=== PATIENT | female | born 1990 | race Caucasian/White ===

== ENCOUNTER 2017-06-14 05:35 | Day surgery (SDC) | payer BC ==
--- NOTE | 2017-06-13 22:37 | PDGENHP ---
History and Physical - Chief Complaint Bilateral hip pain - History of Present Illness 1. Right~Femoroacetabular impingement (ESTUARDO) Cam type, with~resultant labral tear 2. Clinical suspicion of antetorsion; bilateral / BL Dysplasia HISTORY OF PRESENT ILLNESS: Juanis a 26 y.o.~~active female~who I have had the pleasure to consult on today. I have enjoyed meeting her. She~lives in [place]. 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 ~She~is ; she~has no~children. ~Juanenjoys running, hiking. Layla's right~hip pain~started in 2008 with MRI confirming a labral tear but started worsening 2 years ago, with no recalled trauma or injury, and with no~previous complaints. Juandoes not have~a known history of hip dysplasia. Presentation today is of posterior, lateral right~hip pain. ~The hip does not~ wake her~at night and does~click and catch on her. Sitting can be a real struggle~for her. Juandoes~report suffering from lower back pain episodes. Juanhas~participated in physical therapy (2 yrs)~and has~tried other conservative measures including chiropractic treatments. She~has not~received sufficient symptomatic improvement. Juanhas~utilized medication for pain management, including NSAID~ intermittently. Juandenies issues with the left~hip. ~ Juanunderstands that she~has a hip and pelvis problem which should be researched and wishes to get a better understanding of her~hip status, followed by an establishment of a treatment strategy, hoping she~would be able to get back to her~well being active life. History: Past medical history: ~ None which is relevant Relevant familial history: None which is relevant Past surgical history: None Juanhas never received general anesthesia. I have reviewed, verified and agree with the past medical, surgical, family and social history. Current Medications:~has a current medication list which includes the following prescription(s): alprazolam and norethindrone-eth est-iron. ALLERGIES:~has No Known Allergies. Objective: Physical Examination: Juanis 5~feet 7~inches tall and weighs 116~Lbs. Layla~is AAO x3; she~ is well-nourished, in NAD. Skin is warm and dry. ~Breathing is non-labored. ~CV with RRR by pulse. Abdomen is soft, NTND. Currently, she~walks with a abnormal gait, favoring her left side. Trendelenburg sign is negative~and proprioception is reduced, both~sides. She~presents with mild-moderate~signs of joint laxity. Beightons Score: 4 Lower spine examination is negative~for sciatic or femoral nerve irritation with negative~SLR &~femoral stretch tests. Range of motion of the spine is normal~for flexion, extension, and rotations, with no~associated pain. Strength, Sensation and pulses are normal - bilaterally Ankles and knees exams are normal~and no~mal-alignment is evident. She~has~left~1~cm short leg length discrepancy. Thigh circumference is asymmetric~with low~muscle atrophy~on left~side. Hip ROM (degrees): FL ER At 90~hip FL IR At 90~hip FL AB AD EX IR Neutral hip ER Neutral hip R 115 40 35 45 15-20 10 55 30 L 110 45 30 50 5 20 55 25 Specific hip and pelvis tests: Quadrant JORGITO Roll Add. Longus R ++ Negative Negative Negative L + Negative Negative Negative Glut. Med ITB Pos. Imp R Negative 5/5 strength Negative 5/5 strength Negative L Negative 5/5 strength Negative 5/5 strength Negative Squeeze test measured normal. Bony Symphysis pubis is pain free~to touch while concentric activity of the rectus abdominis, does not~produce pain at its insertion. Ilio Psos specific tests are negative for pain during cycling for both hips~and unremarkable for snap. HF are weak in both hips. Posterior~capsule tenderness RIGHT HIP Greater trochanteric burse is pain free~on both hips. Piriformis tests: FAIR is negative, with no~local signs of neuritis related to sciatic nerve. SIJs examination is normal~with normal~JORGITO in relation and local tenderness. Hamstrings tests are negative~functional contraction and negative~tendinopathy both hips. On a daily basis, the following percentages reflect Layla's overall total pain: Deep hip: 100% Imaging: Radiology studies which I have personally reviewed, analyzed and measured are below: XR: AP of the hip and pelvis: Performed in a good~technique Coccyx to pubic symphysis distance 1.5~cm. 0~degrees [place] Lines are preserved. Minimal~Pathological signs are seen in the Symphysis Pubis. Minimal~Pathological signs are seen at the Ischial tuberosity. ~ Specific measurements show: NSA~ LCE Sourcil~Angle Sharp's angle Lat. Cam Lat. Pincer C.Over~sign Head~Coverage % ATDmm R N 25 5 41 + - 12-12:30 N N L N 29 6 42 + - 12-12:30 N N Pos. wall sign ISS NAD ~~Dysplasia Comments R Negative Negative 16.1~mm Negative L Negative Negative 15.2~mm Negative Sclerosis Sup. Lat. OA Cysts Joint Space-WBZ Joint Space-Medial R Negative Negative Negative 2.9~mm 3.2~mm L Negative Negative Negative 2.9~mm 3.5~mm X Table lateral: Anterior cam lesion is seen~on both hips. Alpha Angle: ~ Right 61~dergrees Left 58~degrees Impression and plan: Layla~is a 26 y.o.~active female~suffering from symptomatic~right~hip pain~ due to Right~Femoroacetabular impingement (ESTUARDO) Cam type, with~resultant labral tear and possible underline BL instabilty,~causing significant disability to her ~and altering her~sport and life activities. Physical examination, imaging, and her~story correspond with the diagnosis mentioned above. I explained that femoroacetabular impingement (ESTUARDO) arises due to a bony or soft tissue conflict between the femur (ball) and acetabulum (socket) caused by an abnormality in the shape of the hip joint. Over time, repetitive impingement can result in damage to the labrum and adjacent surface cartilage within the socket, ultimately giving rise to progressive osteoarthritis of the hip. I explained that although a labral tear can be a source of pain, it is rarely the root of the problem and typically occurs secondary to an underlying abnormality in the shape and mechanics of the hip joint. ~ I reviewed conservative treatment options for ESTUARDO including activity modification to avoid positions of impingement, physical therapy, non-steroidal anti-inflammatory medications, and various injections (corticosteroid and PRP) aimed at reducing inflammation in the hip joint or/and preventing dynamic impingement. PRP injections may promote healing and reduce symptoms in certain cases but it will not repair chronically damaged tissue. Although these measures may help to buy time and reduce current level of symptoms, they are not a definitive solution to the problem given the underlying abnormality in the shape of the hip joint. Patients who have failed conservative management and continue to experience symptoms are candidates for hip arthroscopy, a minimally invasive surgery that can definitively address the underlying problem. Hip arthroscopy typically includes treating the labrum with either repair or reconstruction of the torn labrum; as well as addressing the underlying abnormalities by restoring the normal shape to the hip joint. ~If the cartilage is damaged a Microfracture surgical procedure may also be necessary to help stimulate the growth of fibrocartilage. ~If a patient requires a labral reconstruction or a Microfracture, the initial rehabilitation from the surgery may take longer, but the fpc results are typically favorable. In order to confirm the diagnosis of intra articular pain we offered Layla a hip injection. ~She did not want to have an injection today in clinic and will return in the future if she would like to proceed with this diagnostic and treatment modality. ~ If hip joint pathology is confirmed with an injection in the future, we will order CT and MRI to evaluate the quality of her soft tissues and to have accurate measurements for possible pre-operative planning. If these images comeback and support instability more then ESTUARDO, we will have further discussion in this direction too. Juanwill review the info presented. Juanwill contact us if she~wishes to pursue further treatment in the future. Juanis happy with this plan. I wish~Juanall the best, ~~ Jerson Oquendo, PAC History Information - Allergies/Home Medication List Allergies/Adverse Reactions: No Known Allergies Allergy (Unverified 06/02/17 14:20) Home Medications: Minastrin 24 Fe Chewable Tab 06/02/17 [Last Taken Unknown] I have personally reviewed and updated: medical history - Social History Smoking Status: Never smoked Review of Systems Review of Systems: Physical Exam Physical Exam:
[2017-06-14] MEDS ORDERED: ceFAZolin 2 GM/SWFI 2 GM/20 ML SYR IVP ONE (05:44)
[2017-06-14] MEDS ORDERED: ACETAMINOPHEN 500 MG TAB PO ONE (05:44)
[2017-06-14] MEDS ORDERED: PREGABALIN 150 MG CAP PO ONE (05:44)
[2017-06-14] MEDS ORDERED: LR 1,000 ML IV ONE (05:45)
[2017-06-14] MEDS ORDERED: MIDAZOLAM 2 MG/2 ML VIAL IVP ONE (06:54)
[2017-06-14] MEDS ORDERED: EPINEPHrine 30 MG/30 ML MDV (0.1 MG/0.1 ML) ONE (07:01)
[2017-06-14] MEDS ORDERED: BUPIVACAINE 0.25% 30 ML SDV ONE (07:01)
--- NOTE | 2017-06-14 07:02 | PDANEPAE ---
ANE History of Present Illness Patient presents for bilateral hip arthroscopy ANE Past Medical History - Cardiovascular History Hx Hypertension: No Hx Arrhythmias: No Hx Chest Pain: No Hx Coronary Artery / Peripheral Vascular Disease: No Hx CHF / Valvular Disease: No Hx Palpitations: No - Pulmonary History Hx COPD: No Hx Asthma/Reactive Airway Disease: No Hx Recent Upper Respiratory Infection: No Hx Oxygen in Use at Home: No Hx Sleep Apnea: No Sleep Apnea Screening Result - Last Documented: Negative - Neurologic History Hx Cerebrovascular Accident: No Hx Seizures: No Hx Dementia: No - Endocrine History Hx Diabetes: No - Renal History Hx Renal Disorders: No - Liver History Hx Hepatic Disorders: No - Neurological & Psychiatric Hx Hx Neurological and Psychiatric Disorders: No - Cancer History Hx Cancer: No - Congenital Disorder History Hx Congenital Disorders: No - GI History Hx Gastrointestinal Disorders: No - Other Health History Other Health History: bilat hip pain-impingement - Chronic Pain History Chronic Pain: No - Surgical History Prior Surgeries: wisdom teeth extraction -Dr mynor NICOLAS Review of Systems Review of Systems: - Exercise capacity Exercise capacity: >=4 METS METS (RN): 4 METS ANE Patient History - Allergies Allergies/Adverse Reactions: No Known Allergies Allergy (Unverified 06/02/17 14:20) - Home Medications Home medications: home medication list seen and reviewed Home Medications: Minastrin 24 Fe Chewable Tab 06/02/17 [Last Taken 06/13/17] - NPO status NPO Status: no food or drink >8 hours NPO Since - Liquids (Date): 06/13/17 NPO Since - Liquids (Time): 21:00 NPO Since - Solids (Date): 06/13/17 NPO Since - Solids (Time): 20:00 - Anes Hx Anes Hx: no prior problems - Smoking Hx Smoking Status: Never smoked - Family Anes Hx Family Hx Anesthesia Complications: none ANE Labs/Vital Signs - Vital Signs Blood Pressure: 128/92 Heart Rate: 69 Respiratory Rate: 16 O2 Sat (%): 95 Height: 170.18 cm Weight: 54.431 kg ANE Physical Exam - Airway Neck exam: FROM Mallampati Score: Class 2 Mouth exam: normal dental/mouth exam - Pulmonary Pulmonary: no respiratory distress - Cardiovascular Cardiovascular: regular rate and rhythym - ASA Status ASA Status: I ANE Anesthesia Plan Anesthesia Plan: general endotracheal anesthesia (RBA discussed)
[2017-06-14] MEDS ORDERED: fentaNYL 100 MCG/2 ML INJ ONE ×4 (07:10→15:02)
[2017-06-14] MEDS ORDERED: PROPOFOL/EMULSION 500 MG/50 ML BOTTLE IV ONE ×3 (07:11→11:08)
[2017-06-14] MEDS ORDERED: PROPOFOL 200 MG/20 ML VIAL ONE (07:11)
[2017-06-14] MEDS ORDERED: REMIFENTANIL HCL 1 MG VIAL ONE ×2 (07:15)
[2017-06-14] MEDS ORDERED: PHENYLEPHRINE HCL 100 MCG/ML SYR ONE (08:44)
[2017-06-14] MEDS ORDERED: ONDANSETRON 4 MG/2 ML VIAL ONE (08:47)
[2017-06-14] MEDS ORDERED: DEXAMETHASONE 4 MG/ML VIAL ONE (08:47)
[2017-06-14] MEDS ORDERED: ROCURONIUM 50 MG/5 ML VIAL ONE ×3 (09:13→11:49)
[2017-06-14] MEDS ORDERED: oxyCODONE IR 5 MG TAB PO PRN (15:24)
[2017-06-14] MEDS ORDERED: LR 500 ML IV PRN (15:24)
[2017-06-14] MEDS ORDERED: ONDANSETRON 4 MG/2 ML VIAL IVP PRN (15:24)
[2017-06-14] MEDS ORDERED: HYDROmorphONE/DILAUDID 2 MG/ML INJ IVP PRN (15:24)
[2017-06-14] MEDS ORDERED: NALOXONE HCL 0.4 MG/ML INJ IVP PRN (15:24)
[2017-06-14] MEDS ORDERED: fentaNYL 100 MCG/2 ML INJ IVP PRN (15:24)
--- NOTE | 2017-06-14 15:43 | POSTANESTH ---
Post Anesthetic Evaluation Cardiovascular Status: Similar to Pre-Op Cond Respiratory Status: Similar to Pre-op Cond. Level of Consciousness/Mental Status: Alert and Oriented Pain Control: Adequate, Prn Tx Ordered Nausea/Vomiting Control: Adequate, Prn Tx Ordered Complications Possibly Related to Anesthesia: None Noted
[2017-06-14] MEDS ORDERED: PETROLAT,WHT/MIN OIL/SOD CHL 3.5 GM OPHT.OINT RTEYE PRN (16:15)
[2017-06-14 17:27] VITALS: BP 101/64
[2017-06-14] MEDS ORDERED: oxyCODONE IR 5 MG TAB ONE (17:32)
== END 2017-06-14 18:41 | disposition home or self-care (01) ==
LOC: FSGY 05:35 → MERGE 05:35 → FSGY 18:41
PROVIDERS: ATTEND Orthopaedic Surgery Sports Medicine
PROC: 0SQ94ZZ Repair Right Hip Joint, Percutaneous Endoscopic Approach (ICD-10-PCS; principal; 2017-06-14 07:15)
PROC: 0SQB4ZZ Repair Left Hip Joint, Percutaneous Endoscopic Approach (ICD-10-PCS; principal; 2017-06-14 07:15)
DX: M25.851 Other specified joint disorders, right hip (principal); M25.852 Other specified joint disorders, left hip
CPT/HCPCS: C1713; J0171; J0690; J1100; J2250; J2370; J2405; J2704; J3010